=== PATIENT | female | born 1970 ===

== ENCOUNTER 2017-02-13 10:10 | Emergency (ER) | payer MEDICAID, OTHER ==
[2017-02-13 10:11] VITALS: BMI 35.7
[2017-02-13 10:18] VITALS: BP 119/81; PULSE 69; RESP 16; TEMP 98.4; O2SAT 98
--- NOTE | 2017-02-13 10:20 | ED PDOC ---
Arrival/HPI - General Time Seen by Provider: 02/13/17 10:13 Historian: Patient - History of Present Illness Narrative History of Present Illness (Text): 02/13/17 10:19 46 y/o female, pmh including chronic knee pain, allergic to penicillin, c/o lt. knee injury with twisting movement and hit against the wall today x 2 hours. Pt. is chronically on the cane, walking on the left knee, history of lt. tibial spine/tibial plateau fracture which she is seeing orthopedic which suggest her physical therapy and no surgery as per patient. Pt. is concerning about the injury today, no calf or leg pain, no numbness or tingling, no other medical or psychological complaints. Past Medical History - Provider Review Nursing Documentation Reviewed: Yes - Infectious Disease Hx of Infectious Diseases: None - Tetanus Immunization Tetanus Immunization: Unknown - Cardiac Hx Hypertension: Yes - Neurological Hx Migraine: Yes - Hematological/Oncological Other/Comment: Factor V deficiency - Musculoskeletal/Rheumatological Hx Arthritis: Yes - Psychiatric Hx Psychophysiologic Disorder: No Hx Anxiety: No Hx Bipolar Disorder: No Hx Depression: No Hx Emotional Abuse: No Hx Hallucinations: No Hx Panic Disorder: No Hx Post Traumatic Stress Disorder: No Hx Psychosis: No Hx Physical Abuse: No Hx Schizophrenia: No Hx Sexual Abuse: No Hx Substance Use: No - Surgical History Hx Orthopedic Surgery: Yes (R LEG) Other/Comment: R ankle surgery - Anesthesia Hx Anesthesia: Yes Hx Anesthesia Reactions: No Hx Malignant Hyperthermia: No - Suicidal Assessment Feels Threatened In Home Enviroment: No Family/Social History - Physician Review Nursing Documentation Reviewed: Yes Family/Social History: Unknown Family HX Smoking Status: Never Smoked Hx Alcohol Use: No Hx Substance Use: No Hx Substance Use Treatment: No Allergies/Home Meds Allergies/Adverse Reactions: Allergies Penicillins Allergy (Verified 12/20/15 10:08) RASH Home Medications: Home Meds Medication Instructions Recorded Confirmed Gabapentin [Neurontin] 1 tab PO BID 02/13/17 02/13/17 Naproxen [Naprosyn] 500 mg PO PRN PRN 02/13/17 02/13/17 Oxycodone HCl [Oxycontin] 1 tab PO PRN PRN 02/13/17 02/13/17 oxyCODONE [oxyCODONE Immediate 10 mg PO PRN PRN 08/13/17 08/13/17 Release Tab] Review of Systems - Review of Systems Constitutional: absent: Fatigue, Fevers Eyes: absent: Vision Changes ENT: absent: Hearing Changes Respiratory: absent: SOB, Cough, Sputum Cardiovascular: absent: Chest Pain Gastrointestinal: absent: Abdominal Pain, Nausea, Vomiting Musculoskeletal: Arthralgias. absent: Back Pain, Neck Pain, Joint Swelling, Myalgias Skin: absent: Rash, Pruritis Physical Exam Vital Signs Reviewed: Yes Vital Signs Temp Pulse Resp BP Pulse Ox 02/13/17 10:18 98.4 F 69 16 119/81 98 Temperature: Afebrile Blood Pressure: Normal Pulse: Regular Respiratory Rate: Normal Appearance: Positive for: Well-Appearing, Non-Toxic, Comfortable Pain Distress: Mild Mental Status: Positive for: Alert and Oriented X 3 - Systems Exam Head: Present: Atraumatic, Normocephalic Pupils: Present: PERRL Extroacular Muscles: Present: EOMI Conjunctiva: Present: Normal Mouth: Present: Moist Mucous Membranes Neck: Present: Normal Range of Motion Respiratory/Chest: Present: Clear to Auscultation, Good Air Exchange. No: Respiratory Distress, Accessory Muscle Use Cardiovascular: Present: Regular Rate and Rhythm, Normal S1, S2. No: Murmurs Abdomen: Present: Normal Bowel Sounds. No: Tenderness, Distention, Peritoneal Signs Back: Present: Normal Inspection Upper Extremity: Present: Normal Inspection. No: Cyanosis, Edema Lower Extremity: Present: Normal Inspection, Other (Lt. knee: +ttp on the anterior aspect of the knee with no swelling or deformity, negative jordy and longoria signs, FROM without limitation, sensation intact, motor 5/5, +DPPT pulses, capillary refill< 2 seconds, no rash or cellulitis. ). No: Edema Neurological: Present: GCS=15, Speech Normal, Motor Func Grossly Intact, Gait Normal, Memory Normal Skin: Present: Warm, Dry, Normal Color. No: Rashes Psychiatric: Present: Alert, Oriented x 3, Normal Insight, Normal Concentration Medical Decision Making ED Course and Treatment: 02/13/17 10:43 -lt. knee xray -pt. refused pain meds, took oxycodone prior to arrival -urine hcg negative 02/13/17 11:15 -lt. knee xray show visible old tibial spine/tibial plateau fracture, no new fracture or dislocation. -Discharge home with knee immobilizer, crutches, ice compression, take tylenol at home for pain as needed, follow up with your own pmd and orthopedic/pain management, within 2 days, return to the ER for any new or worsening signs or symptoms. - RAD Interpretation Radiology Orders: 02/13/17 10:24 KNEE WITH PATELLA LEFT 3 VIEW [RAD] Stat PROCEDURE: Left Knee Radiographs. HISTORY: Pain. COMPARISON: 08/02/2016. FINDINGS: BONES: No acute fracture. Evidence of old fracture tibial plateau/ tibial spine region. JOINTS: Normal. No osteoarthritis. JOINT EFFUSION: None. OTHER FINDINGS: None. IMPRESSION: No acute findings related to/accounting for the clinical presentation. No significant interval change compared to the prior examination(s). Concordant results with the preliminary interpretation rendered by the emergency department physician\PA at the conclusion of the procedure. Cw Operator: Radiologist - PA / PHOTOGRAPHER MOTION PICTURE / Resident Statement / has reviewed & agrees with the documentation as recorded. Disposition/Present on Arrival - Present on Arrival Any Indicators Present on Arrival: No History of DVT/PE: Yes History of Uncontrolled Diabetes: No Urinary Catheter: No History of Decub. Ulcer: No History Surgical Site Infection Following: None - Disposition Have Diagnosis and Disposition been Completed?: Yes Diagnosis: Knee injury, Knee pain, Tibial plateau fracture Disposition: HOME/ ROUTINE Disposition Time: 10:45 Patient Plan: Discharge Condition: GOOD Additional Instructions: -Discharge home with knee immobilizer, crutches, ice compression, take tylenol at home for pain as needed, follow up with your own pmd and orthopedic/pain management, within 2 days, return to the ER for any new or worsening signs or symptoms. Referrals: Elizabeth Velez MD [Primary Care Provider] - Follow up with primary Kinjal Vyas MD [Staff Provider] - Follow up with primary Forms: WORK NOTE
--- NOTE | 2017-02-13 12:09 | RAD ---
PROCEDURE: Left Knee Radiographs. HISTORY: Pain. COMPARISON: 08/02/2016. FINDINGS: BONES: No acute fracture. Evidence of old fracture tibial plateau/ tibial spine region. JOINTS: Normal. No osteoarthritis. JOINT EFFUSION: None. OTHER FINDINGS: None. IMPRESSION: No acute findings related to/accounting for the clinical presentation. No significant interval change compared to the prior examination(s). Concordant results with the preliminary interpretation rendered by the emergency department physician procedure.
== END 2017-02-13 11:21 | disposition home or self-care (01) ==
LOC: ED 10:10
DX: S82.142A Displaced bicondylar fracture of left tibia, initial encounter for closed fracture (principal); W22.01XA Walked into wall, initial encounter; Y93.89 Activity, other specified; Y92.89 Other specified places as the place of occurrence of the external cause